=== PATIENT | female | born 1985 | race African-American/Black ===

== ENCOUNTER 2022-09-15 10:59 | Outpatient (REF) | payer MEDICAID, SELFPAY ==
[2022-09-15 13:35] LABS: MANUAL DIFF FLAG NO
[2022-09-15 13:52] LABS: Basophils Percent Auto 0.8 % (0-2); Eosinophils Absolute Auto 0.3 X10*3/uL (0.0-0.4); Eosinophils Percent Auto 8.2 % (0-4); Hemoglobin 12.9 g/dl (12.0-16.0); Lymphocytes Absolute Auto 1.8 X10*3/uL (1.2-4.9); Lymphocytes Percent Auto 47.4 % (20-40); Mean Corpuscular HGB Conc 33.1 g/dl (31.0-35.0); Mean Corpuscular Hemoglobin 25.2 pg (27.0-33.0); Mean Corpuscular Volume 76.3 fL (80.0-98.0); Mean Platelet Volume 12.3 fL (9.4-12.3); Monocytes Absolute Auto 0.3 X10*3/uL (0.1-1.2); Monocytes Percent Auto 6.6 % (2-11); Neutrophils Absolute Auto 1.4 x10*3/uL (2.0-8.3); Platelet Count 241 X10*3/uL (160-400); Red Blood Count 5.11 X10*6/uL (4.20-5.50); Red Cell Distribution Width 14.6 % (11.0-16.0); White Blood Count 3.8 X10*3/uL (4.8-10.8)
[2022-09-15 14:15] LABS: Alanine Aminotransferase 12 U/L (0-31); Albumin Level 4.1 g/dL (3.5-5.0); Alkaline Phosphatase 74 U/L (39-117); Anion Gap 11 (12-20); Aspartate Amino Transferase 17 U/L (5-31); Bilirubin Total 0.5 mg/dL (0.0-1.0); Blood Urea Nitrogen 10 mg/dL (9-16); Calcium 8.9 mg/dL (8.4-10.2); Carbon Dioxide 25 mmol/L (22-29); Chloride 106 mmol/L (96-108); Cholesterol 207 mg/dL; Estimated Glomerular Filt Rate > 60; Glucose Fasting 91 mg/dL (60-99); HDL Cholesterol 48 mg/dL; LDL Cholesterol Calculated 147 mg/dl; Potassium 4.1 mmol/L (3.3-5.1); Sodium 138 mmol/L (135-145); Total Protein 7.1 g/dL (6.5-8.0); Triglycerides 62 mg/dL
[2022-09-15 14:30] LABS: Thyroid Stimulating Hormone 0.78 uIU/mL (0.32-4.0)
== END 2022-09-15 11:00 | disposition home or self-care (01) ==
LOC: HO.10HDL 10:59
PROVIDERS: Visit Provider Internal Medicine
DX: Z00.01 Encounter for general adult medical examination with abnormal findings (principal); E28.2 Polycystic ovarian syndrome; F32.9 Major depressive disorder, single episode, unspecified; I10 Essential (primary) hypertension
CPT/HCPCS: 36415; 80053; 80061; 84443; 85025

== ENCOUNTER 2023-07-08 16:28 | Outpatient (REF) | payer MEDICAID, SELFPAY ==
--- NOTE | ~2023-07-08 | XR_ITS ---
EXAMINATION: XR LEFT ANKLE AND FOOT CLINICAL INFORMATION: Patient states she fell down stairs at her home this morning, , consent signed and patient was shielded. Lateral left ankle pain. COMPARISON: None available. TECHNIQUE: 3 views of the left foot and 2 views of the left ankle. FINDINGS: Left Ankle: Soft tissue swelling. Radiopaque marker placed indicating the area of concern indicated by the patient adjacent to the lateral malleolus. Tiny ossific/calcific fragment just inferior to the medial malleolus. Ankle joint effusion. Tiny plantar calcaneal spur. Left Foot: Tiny plantar calcaneal spur. Minimal degenerative changes in the first metatarsophalangeal joint. Small calcification in the soft tissues adjacent to the distal shaft of the tibia. XR/XR ankle LT min 3V IMPRESSION: 1. Tiny ossific/calcific fragment just inferior to the medial malleolus. Radiopaque marker placed indicating the area of concern indicated by the patient adjacent to the lateral malleolus. Correlation with clinical exam recommended to determine further management. 2. Ankle joint effusion. 3. Tiny plantar calcaneal spur. 4. Recommend follow-up imaging in 10-14 days if fracture is suspected.
--- NOTE | ~2023-07-08 | XR_ITS ---
EXAMINATION: XR LEFT ANKLE AND FOOT CLINICAL INFORMATION: Patient states she fell down stairs at her home this morning, , consent signed and patient was shielded. Lateral left ankle pain. COMPARISON: None available. TECHNIQUE: 3 views of the left foot and 2 views of the left ankle. FINDINGS: Left Ankle: Soft tissue swelling. Radiopaque marker placed indicating the area of concern indicated by the patient adjacent to the lateral malleolus. Tiny ossific/calcific fragment just inferior to the medial malleolus. Ankle joint effusion. Tiny plantar calcaneal spur. Left Foot: Tiny plantar calcaneal spur. Minimal degenerative changes in the first metatarsophalangeal joint. Small calcification in the soft tissues adjacent to the distal shaft of the tibia. XR/XR foot LT min 3V IMPRESSION: 1. Tiny ossific/calcific fragment just inferior to the medial malleolus. Radiopaque marker placed indicating the area of concern indicated by the patient adjacent to the lateral malleolus. Correlation with clinical exam recommended to determine further management. 2. Ankle joint effusion. 3. Tiny plantar calcaneal spur. 4. Recommend follow-up imaging in 10-14 days if fracture is suspected.
== END 2023-07-08 16:29 | disposition home or self-care (01) ==
LOC: HO.XRAY 16:28
PROVIDERS: PCP Internal Medicine; Visit Provider Internal Medicine
DX: S99.912D Unspecified injury of left ankle, subsequent encounter (principal)
CPT/HCPCS: 73610; 73630